=== PATIENT | male | born 1955 | race Caucasian/White ===

== ENCOUNTER 2021-01-27 01:19 | Day surgery (SDC) | payer MEDICARE, SELFPAY ==
[2021-01-22 13:27] VITALS: BMI 42.6
[2021-01-27] VITALS (10 sets, daily range): BP systolic 119–156; BP diastolic 75–94; PULSE 64–75; RESP 12–20; TEMP 36.1–36.4; O2SAT 95–99; BMI 42.1
[2021-01-27] MEDS: LACTATED RINGERS 1,000 ML 30 ML IV CONT (10:24)
[2021-01-27] MEDS: ACETAMINOPHEN 500 MG TABLET 1000 MG PO (10:24)
[2021-01-27] MEDS: KETOROLAC 15 MG/ML VIAL (*BKC) IV PUSH (10:25)
[2021-01-27 10:37] LABS: Glucose Point of Care 178 mg/dl (65-105)
--- NOTE | 2021-01-27 10:51 | WPDANESEPPF ---
Anes - Initial Pre Proc Eval Procedure: Operation Date: 01/27/21 12:00 Proposed Procedures p Open Epigastric Hernia Repair, Possible Mesh - Milo Hodgson DO Date/Time: 01/27/21 10:51 Surgeon: Milo Hodgson DO Pre Op Diagnosis: epigastric hernia Patient Data Age: 65 Gender: M Height: 1.68 m Weight: 118.5 kg Last Vital Signs Temp 36.4 C 01/27/21 09:54 Pulse 70 01/27/21 09:54 Resp 20 01/27/21 09:54 BP 140/75 01/27/21 09:54 Pulse Ox 96 01/27/21 09:54 Allergies Allergy/AdvReac Type Severity Reaction Status Date / Time No Known Allergies Allergy Verified 01/22/21 13:12 Home Medications Medication Instructions Recorded Confirmed Type tramadol 50 mg tablet 50 mg PO Q6H PRN #50 tablet 12/02/20 01/27/21 Rx multivitamin 1 tablet PO DAILY 12/22/20 01/27/21 History omega 9-sxo-adh-fish oil 1,000 mg 2 cap PO BID 12/22/20 01/27/21 History (120 mg-180 mg) capsule Trijardy XR 1 tablet PO QAM 01/22/21 01/27/21 History amlodipine 10 mg PO HS 01/22/21 01/27/21 History atorvastatin 40 mg PO HS 01/22/21 01/27/21 History carvedilol 25 mg PO BID 01/22/21 01/27/21 History cholecalciferol (vitamin D3) 25 mcg PO DAILY 01/22/21 01/27/21 History clindamycin HCl 150 mg PO QAM 01/22/21 01/27/21 History fluticasone propionate [Flonase] 2 spray INTRANASAL DAILY PRN 01/22/21 01/27/21 History glimepiride 1 mg PO QAM 01/22/21 01/27/21 History ibuprofen 600 mg PO QAM 01/22/21 01/27/21 History ibuprofen 800 mg PO BID PRN 01/22/21 01/27/21 History lactobacillus combination no.8 1 cell PO DAILY 01/22/21 01/27/21 History [Adult Probiotic] valsartan-hydrochlorothiazide 1 tablet PO QAM 01/22/21 01/22/21 History Laboratory Tests 01/27/21 10:34 POC Capillary Glucose 178 mg/dl H mg/dl (65-105) Patient hx anesthesia problems: post op nausea/vomiting Family hx anesthesia problems: none PMFSH Past Medical History Medical History Benign essential hypertension BMI 38.0-38.9,adult Cellulitis Chronic cellulitis Chronic pain DM type 2 (diabetes mellitus, type 2) Encounter for routine adult health examination without abnormal findings Encounter for special screening examination for neoplasm of prostate Hospital discharge follow-up Hx of colonic polyps Hyperlipidemia On penitentiary drug therapy NABIL on CPAP Pedal edema Ventral hernia Vitamin D deficiency Surgical History Surgical History Hx of hernia repair bilateral inguinal hernia repair 2009 Dr. Schaffer. Family History Family History Grandparent Family history of coronary artery disease Mother Family history of malignant neoplasm of ovary Heart disease Father Heart disease Social History Social History Smoking status: Never smoker Second hand tobacco smoke exposure: No Alcohol intake: current Drinks per week: 4 Alcohol use details: social Substance use: never Living arrangements: with family Additional living arrangements comments: Spiritual care concerns: No Anes - Eval Final PreProcedure Day of Procedure 01/27/21 10:51 Patient weight: morbidly obese Heart: regular rate and rhythm Lungs: clear to auscultation Airway: Mallampati scale class II Neurological: alert and oriented Last oral intake: >/= 8 hours ASA classification: III Emergent: no Anesthetic plan: proceed Anesthesia type and monitoring: general ETT and standard monitoring Informed Consent: The patient's anesthetic plan and its attendant risks and benefits were discussed with the patient/family/POA. Questions were solicited and answers provided to the satisfaction of the patient/family/POA.
--- NOTE | 2021-01-27 11:49 | WPDHPUPDATE1 ---
History and Physical Update Update Date/Time: 01/27/21 11:49 History and Physical has been reviewed, including an updated exam of the patient. There are NO changes in the patient's condition. Risks, benefits, and alternatives have been discussed and questions answered. Patient agrees to proceed with procedure.
--- NOTE | 2021-01-27 11:49 | PM.IMHP ---
H&P: HPI History of Present Illness Date/Time: 01/27/21 11:49 Chief Complaint: epigastric hernia Narrative: This is a 65 yo man who presents for epigastric hernia repair. He denies any changes since last seen in office. Review of Systems Review of Systems: All systems reviewed & are unremarkable except as noted in HPI and below Constitutional: Constitutional: Denies chills, Denies fever(s), Denies headache(s) and Denies weight loss Eyes: Eyes: Denies change in vision ENT: Denies dizziness, Denies headache(s), Denies neck mass and Denies throat swelling Cardiovascular: Cardiovascular: Denies chest pain, Denies lightheadedness and Denies dyspnea Respiratory: Respiratory: Denies cough, Denies dyspnea and Denies wheezing Gastrointestinal: Gastrointestinal: Denies abdominal pain, Denies change in bowel habits, Denies nausea and Denies vomiting Genitourinary: Genitourinary: Denies hematuria and Denies dysuria Musculoskeletal: Musculoskeletal: Reports as per HPI Integumentary/Breasts: Skin/Breast: Reports as per HPI Neurologic: Denies dizziness and Denies headache(s) Allergic/Immunologic: Allergic/Immunologic: Denies throat swelling and Denies wheezing PMFSH Past Medical History Medical History Benign essential hypertension BMI 38.0-38.9,adult Cellulitis Chronic cellulitis Chronic pain DM type 2 (diabetes mellitus, type 2) Encounter for routine adult health examination without abnormal findings Encounter for special screening examination for neoplasm of prostate Hospital discharge follow-up Hx of colonic polyps Hyperlipidemia On detention drug therapy NABIL on CPAP Pedal edema Ventral hernia Vitamin D deficiency Surgical History Surgical History Hx of hernia repair bilateral inguinal hernia repair 2009 Dr. Schaffer. Family History Family History Grandparent Family history of coronary artery disease Mother Family history of malignant neoplasm of ovary Heart disease Father Heart disease Social History Social History Smoking status: Never smoker Second hand tobacco smoke exposure: No Alcohol intake: current Drinks per week: 4 Alcohol use details: social Substance use: never Living arrangements: with family Additional living arrangements comments: Spiritual care concerns: No Meds Home Medications and Allergies Home Medications Medication Instructions Recorded Confirmed Type tramadol 50 mg tablet 50 mg PO Q6H PRN #50 tablet 12/02/20 01/27/21 Rx multivitamin 1 tablet PO DAILY 12/22/20 01/27/21 History omega 6-tfd-ugj-fish oil 1,000 mg 2 cap PO BID 12/22/20 01/27/21 History (120 mg-180 mg) capsule Trijardy XR 1 tablet PO QAM 01/22/21 01/27/21 History amlodipine 10 mg PO HS 01/22/21 01/27/21 History atorvastatin 40 mg PO HS 01/22/21 01/27/21 History carvedilol 25 mg PO BID 01/22/21 01/27/21 History cholecalciferol (vitamin D3) 25 mcg PO DAILY 01/22/21 01/27/21 History clindamycin HCl 150 mg PO QAM 01/22/21 01/27/21 History fluticasone propionate [Flonase] 2 spray INTRANASAL DAILY PRN 01/22/21 01/27/21 History glimepiride 1 mg PO QAM 01/22/21 01/27/21 History ibuprofen 600 mg PO QAM 01/22/21 01/27/21 History ibuprofen 800 mg PO BID PRN 01/22/21 01/27/21 History lactobacillus combination no.8 1 cell PO DAILY 01/22/21 01/27/21 History [Adult Probiotic] valsartan-hydrochlorothiazide 1 tablet PO QAM 01/22/21 01/22/21 History Allergies Allergy/AdvReac Type Severity Reaction Status Date / Time No Known Allergies Allergy Verified 01/22/21 13:12 Vital Signs Vital Signs - 24 hr 01/27/21 09:54 Temperature 36.4 C Pulse Rate 70 Respiratory Rate 20 Blood Pressure 140/75 Pulse Oximetry 96 Exam Const: General: no acute distress a
[2021-01-27] MEDS: SCOPOLAMINE 1.5 MG PATCH TRANSDERM (12:21)
[2021-01-27] MEDS: ceFAZolin 2 GM/D5W 50 ML 2 GM/50 ML BAG IVPB (12:24)
[2021-01-27] MEDS: BUPIVACAINE/EPINEPHRINE 0.5% 30 ML VIAL INFILTRATE (12:56)
--- NOTE | 2021-01-27 13:20 | W.PM.PROC2 ---
Procedure Note - Detailed Date of Procedure 01/27/21 Pre-op Diagnosis epigastric hernia Post-op Diagnosis same Procedure Performed Open epigastric hernia repair with 4.6 cm Parietex ventral patch Surgeon Milo Hodgson, DO Anesthesia general and local (0.5% bupivacaine with epinephrine) Indications This is a 65-year-old man who presented with an upper abdominal bulge that has been present for several months. He feels that this has gradually enlarged and does cause some discomfort with activity. He was found to have a wide rectus diastasis in his upper abdomen from his xiphoid to umbilicus, but within the diastasis there did appear to be an isolated bulge that appeared to be an epigastric hernia containing preperitoneal fat. Discussions were made with the patient about treatment options and decision was made to proceed with epigastric hernia repair with possible mesh. Findings Epigastric hernia repair was performed. The epigastric hernia measured approximately 1 cm was located about 5 cm inferior to the xiphoid process. The hernia defect appeared just wide enough to require mesh for repair, and this was partially due to the fact that the fascia appeared very thin and weak in this location. A 4.6 cm prior to expansion opacity was placed within the preperitoneal pocket and this was secured to the fascia using 0 Ethibond U-stitch trans fascial sutures. The hernia sac that was excised was sent pathology. Description of Procedure Procedure as well as risks, benefits, and alternatives were discussed with the patient. Written consent was obtained and placed in chart prior to procedure. Patient was brought back to surgical suite. He was placed supine on operating table. He was then intubated by Anesthesia Department. His abdomen was prepped and draped in sterile fashion using chlorhexidine prep. 0.5% bupivacaine with epinephrine was infiltrated locally around the operative area. A 3 cm transverse incision was made in the epigastric region using a 15 blade scalpel. Electrocautery was used for hemostasis and for dissection down through the subcutaneous fat. Hernia sac was encountered and this was carefully freed up from surrounding subcutaneous fat using electrocautery. The hernia sac was freed up all the way down to the level of the fascia, and then it was transected using electrocautery. The hernia sac was sent to the lab for pathology. The hernia defect was then measured. This was measuring approximately 10 mm. The decision was made to use a 4.6 cm Parietex ventral patch. The peritoneum was cleared under the fascia circumferentially around the hernia using blunt dissection and electrocautery. Once a wide enough pocket was created for the mesh, the mesh was then placed within this preperitoneal pocket and laid out flat centered on the hernia defect. The mesh appeared to be sitting in proper position. The mesh was then secured at the 4 corners using 0 Ethibond U-stitch trans fascial sutures. Once all 4 sutures were placed, the mesh was lifted up against the abdominal wall and appeared to be properly centered on the hernia defect. The fascia of the hernia defect was then reapproximated over the mesh using 0 Ethibond [id number] sutures. The 4 transfascial sutures were then tied down in place. The repair was inspected and appeared secure. 0.5% bupivacaine with epinephrine was infiltrated around the fascia and subcutaneous space. Sulaiman's fascia was reapproximated using 3-0 Vicryl simple interrupted sutures and then the skin was approximated using 4-0 Monocryl running subcuticular suture. Exofin glue was then applied on top. The patient was then awakened from anesthesia, extubated, and transferred to recovery. Implants 4.6 cm Parietex ventral patch Estimated Blood Loss 5 Pathology yes (Hernia sac) Complications No immediate complications Condition stable Disposition same day
[2021-01-27 13:33] LABS: Glucose Point of Care 157 mg/dl (65-105)
== END 2021-01-27 15:21 | disposition home or self-care (01) ==
PROVIDERS: PCP Internal Medicine; Visit Provider Surgery
PROC: 0WQF0ZZ Repair Abdominal Wall, Open Approach (ICD-10-PCS; CPT 49560; principal; 2021-01-27 12:00)
DX: K43.9 Ventral hernia without obstruction or gangrene (principal); M62.08 Separation of muscle (nontraumatic), other site; I10 Essential (primary) hypertension; E11.9 Type 2 diabetes mellitus without complications; E78.5 Hyperlipidemia, unspecified; G47.33 Obstructive sleep apnea (adult) (pediatric); E55.9 Vitamin D deficiency, unspecified; G89.29 Other chronic pain; Z79.84 Long term (current) use of oral hypoglycemic drugs; Z79.891 Long term (current) use of opiate analgesic; E66.01 Morbid (severe) obesity due to excess calories; Z68.41 Body mass index [BMI] 40.0-44.9, adult
CPT/HCPCS: 49560; 49568; 82948; 88302; A9270; C1781; J0690; J1885; J2250; J3010; J7120

== ENCOUNTER → 2021-04-02 06:29 | Outpatient (CLI) | payer MEDICARE, SELFPAY ==
[2021-04-02 17:47] LABS: SARS-CoV-2 RNA PCR Negative
== END ==
PROVIDERS: PCP Internal Medicine; Visit Provider Internal Medicine
DX: R68.89 Other general symptoms and signs (principal); Z20.822 Contact with and (suspected) exposure to COVID-19
CPT/HCPCS: C9803; U0003; U0005

== ENCOUNTER 2021-06-10 00:39 | Day surgery (SDC) | payer MEDICARE, SELFPAY ==
[2021-05-31 12:13] VITALS: BMI 40.4
--- NOTE | 2021-06-09 17:13 | PM.HPGS ---
History of Present Illness History of Present Illness Consent: Risks, benefits, and alternatives have been discussed and questions answered. Patient agrees to proceed with procedure. Chief complaint: hx of colon polyps Narrative: Jim Huffman is a 65 year old male With history of colon polyps. He is due for colon cancer screening. Review of Systems Review of Systems: All systems reviewed & are unremarkable except as noted in HPI and below PMFSH Past Medical History Medical History Benign essential hypertension BMI 38.0-38.9,adult Cellulitis Chronic cellulitis Chronic pain DM type 2 (diabetes mellitus, type 2) Encounter for routine adult health examination without abnormal findings Encounter for special screening examination for neoplasm of prostate Hospital discharge follow-up Hx of colonic polyps Hyperlipidemia On penitentiary drug therapy NABIL on CPAP Pedal edema Ventral hernia Vitamin D deficiency Surgical History Surgical History H/O ventral hernia repair Open epigastric hernia repair with 4.6 cm Parietex ventral patch Hx of hernia repair bilateral inguinal hernia repair 2009 Dr. Schaffer. Family History Family History Grandparent Family history of coronary artery disease Mother Family history of malignant neoplasm of ovary Heart disease Father Heart disease Social History Social History Smoking status: Never smoker Second hand tobacco smoke exposure: No Alcohol intake: current Drinks per week: 4 Alcohol use details: social drinker Substance use: never Substance use type: does not use Living arrangements: with family Additional living arrangements comments: Spiritual care concerns: No Meds Home Medications and Allergies Home Medications Medication Instructions Recorded Confirmed Type multivitamin 1 tablet PO DAILY 12/22/20 06/10/21 History omega 3-gqt-lsh-fish oil 1,000 mg 2 cap PO BID 12/22/20 06/10/21 History (120 mg-180 mg) capsule Trijardy XR 1 tablet PO QAM 01/22/21 06/10/21 History carvedilol 25 mg PO BID 01/22/21 06/10/21 History cholecalciferol (vitamin D3) 25 mcg PO DAILY 01/22/21 06/10/21 History clindamycin HCl 150 mg PO QAM 01/22/21 06/10/21 History fluticasone propionate 2 spray INTRANASAL DAILY PRN 01/22/21 06/10/21 History glimepiride 1 mg PO QAM 01/22/21 06/10/21 History lactobacillus combination no.8 1 cell PO DAILY 01/22/21 06/10/21 History valsartan-hydrochlorothiazide 1 tablet PO QAM 01/22/21 06/10/21 History amlodipine 10 mg tablet See Rx Instructions .ROUTE 04/01/21 06/10/21 Rx .COMPLEX #90 tablet tramadol 50 mg tablet 50 mg PO Q6H PRN #50 tablet 04/13/21 06/10/21 Rx atorvastatin 40 mg tablet See Rx Instructions .ROUTE 05/24/21 06/10/21 Rx .COMPLEX #90 tablet ibuprofen 800 mg tablet See Rx Instructions .ROUTE 05/28/21 06/10/21 Rx .COMPLEX #90 tablet Allergies Allergy/AdvReac Type Severity Reaction Status Date / Time No Known Allergies Allergy Verified 06/10/21 07:44 Exam Resp: Auscultation: clear to auscultation bilaterally Cardio: Rate: regular rate Rhythm: regular rhythm GI: GI Palp: Yes Soft to palpation and No Tenderness to palpation present (GI) Assessment and Plan Assessment and plan (1) Colon cancer screening: Code(s): Z12.11 - Encounter for screening for malignant neoplasm of colon Status: Acute Assessment and Plan: Colonoscopy with possible biopsy or polypectomy or cautery or injection of substances.
[2021-06-10 07:46] VITALS: BP 155/90; PULSE 78; RESP 19; TEMP 36.7; O2SAT 97; BMI 41.1
--- NOTE | 2021-06-10 07:46 | WPDANESEPPF ---
Anes - Initial Pre Proc Eval Procedure: Operation Date: 06/10/21 09:00 Proposed Procedures p Screening Colonoscopy - Rogers Almaraz MD Date/Time: 06/10/21 07:46 Surgeon: Rogers Almaraz MD Pre Op Diagnosis: hx of colon polyps Patient Data Age: 65 Gender: M Height: 1.68 m Weight: 113.5 kg Allergies Allergy/AdvReac Type Severity Reaction Status Date / Time No Known Allergies Allergy Verified 06/10/21 07:44 Home Medications Medication Instructions Recorded Confirmed Type multivitamin 1 tablet PO DAILY 12/22/20 06/10/21 History omega 2-xxb-uhu-fish oil 1,000 mg 2 cap PO BID 12/22/20 06/10/21 History (120 mg-180 mg) capsule Trijardy XR 1 tablet PO QAM 01/22/21 06/10/21 History carvedilol 25 mg PO BID 01/22/21 06/10/21 History cholecalciferol (vitamin D3) 25 mcg PO DAILY 01/22/21 06/10/21 History clindamycin HCl 150 mg PO QAM 01/22/21 06/10/21 History fluticasone propionate 2 spray INTRANASAL DAILY PRN 01/22/21 06/10/21 History glimepiride 1 mg PO QAM 01/22/21 06/10/21 History lactobacillus combination no.8 1 cell PO DAILY 01/22/21 06/10/21 History valsartan-hydrochlorothiazide 1 tablet PO QAM 01/22/21 06/10/21 History amlodipine 10 mg tablet See Rx Instructions .ROUTE 04/01/21 06/10/21 Rx .COMPLEX #90 tablet tramadol 50 mg tablet 50 mg PO Q6H PRN #50 tablet 04/13/21 06/10/21 Rx atorvastatin 40 mg tablet See Rx Instructions .ROUTE 05/24/21 06/10/21 Rx .COMPLEX #90 tablet ibuprofen 800 mg tablet See Rx Instructions .ROUTE 05/28/21 06/10/21 Rx .COMPLEX #90 tablet Patient hx anesthesia problems: none Family hx anesthesia problems: none Results Review: All pre-operative results and documents have been reviewed as part of the pre-operative evaluation. [facility] Past Medical History Medical History Benign essential hypertension BMI 38.0-38.9,adult Cellulitis Chronic cellulitis Chronic pain DM type 2 (diabetes mellitus, type 2) Encounter for routine adult health examination without abnormal findings Encounter for special screening examination for neoplasm of prostate Hospital discharge follow-up Hx of colonic polyps Hyperlipidemia On jail drug therapy NABIL on CPAP Pedal edema Ventral hernia Vitamin D deficiency Surgical History Surgical History H/O ventral hernia repair Open epigastric hernia repair with 4.6 cm Parietex ventral patch Hx of hernia repair bilateral inguinal hernia repair 2009 Dr. Schaffer. Family History Family History Grandparent Family history of coronary artery disease Mother Family history of malignant neoplasm of ovary Heart disease Father Heart disease Social History Social History Smoking status: Never smoker Second hand tobacco smoke exposure: No Alcohol intake: current Drinks per week: 4 Alcohol use details: social drinker Substance use: never Substance use type: does not use Living arrangements: with family Additional living arrangements comments: Spiritual care concerns: No Anes - Eval Final PreProcedure Day of Procedure 06/10/21 07:46 Patient weight: morbidly obese Heart: regular rate and rhythm Lungs: clear to auscultation Airway: Mallampati scale class II Neurological: alert and oriented Last oral intake: >/= 8 hours ASA classification: III Emergent: no Anesthetic plan: proceed Anesthesia type and monitoring: general GIVS and standard monitoring Results Review: All pre-operative results and documents have been reviewed as part of the pre-operative evaluation. Informed Consent: The patient's anesthetic plan and its attendant risks and benefits were discussed with the patient/family/POA. Questions were solicited and answers provided to the satisfaction of the patient/family/POA.
[2021-06-10] MEDS: LACTATED RINGERS 1,000 ML 150 ML IV CONT (07:50)
[2021-06-10 08:02] LABS: Glucose Point of Care 167 mg/dl (65-105)
[2021-06-10 08:50] VITALS: BP 107/55; PULSE 75; RESP 16; O2SAT 96
[2021-06-10 09:00] VITALS: BP 105/53; PULSE 72; RESP 18; O2SAT 96
[2021-06-10 09:10] VITALS: BP 121/68; PULSE 71; RESP 20; O2SAT 98
== END 2021-06-10 09:27 | disposition home or self-care (01) ==
PROVIDERS: PCP Internal Medicine; Visit Provider Internal Medicine Gastroenterology
PROC: 0DJD8ZZ Inspection of Lower Intestinal Tract, Via Natural or Artificial Opening Endoscopic (ICD-10-PCS; CPT 45378; principal; 2021-06-10 09:00)
DX: Z12.11 Encounter for screening for malignant neoplasm of colon (principal); K57.30 Diverticulosis of large intestine without perforation or abscess without bleeding; Z86.010 Personal history of colon polyps; I10 Essential (primary) hypertension; E11.9 Type 2 diabetes mellitus without complications; E78.5 Hyperlipidemia, unspecified; E55.9 Vitamin D deficiency, unspecified; G47.33 Obstructive sleep apnea (adult) (pediatric); Z79.899 Other long term (current) drug therapy
CPT/HCPCS: G0105; 82948; J2001; J2704; J7120

== ENCOUNTER 2021-07-09 07:37 | Outpatient (CLI) | payer MEDICARE, SELFPAY ==
--- NOTE | 2021-07-09 07:56 | ECHO_ITS ---
Patient Info Name: Jim Huffman Age: 65 years : 1955 Gender: Male Ht: 66 in Wt: 260 lbs BSA: 2.40 m2 HR: 73 bpm BP: 162 / 96 mmHg Technical Quality: Fair Exam Date: 07/09/2021 8:10 AM Exam Location: [facility] Patient Status: Preadmit Admit Date: 07/09/2021 Staff Ordering Physician: Donnell Curry MD [employer] Operator: Allyson Leavitt RDCS Attending Provider: Donnell Curry MD Referring Physician: Patricio TREJO; Exam Type: CA echo doppler color flow Study Info Indications I10 - Essential (primary) hypertension Complete two-dimensional, color flow and Doppler transthoracic echocardiogram is performed. Summary 1. Complete two-dimensional, color flow and Doppler transthoracic echocardiogram is performed. 2. Left ventricular chamber dimension is normal. 3. Left ventricular systolic function is normal, estimated at 60-65%. 4. There is mildly increased left ventricular wall thickness. 5. The left ventricular diastolic function is grade I diastolic dysfunction. 6. E/e' 14 is mildly elevated. 7. Global longitudinal strain is abnormal at -15.0%. 8. There is mild aortic valve regurgitation. 9. The mitral valve has moderately calcified annulus. 10. There is trace mitral valve regurgitation. 11. No pulmonary hypertension, estimated pulmonary arterial systolic pressure is 17 mmHg. Left Ventricle E/e' 14 is mildly elevated. Global longitudinal strain is abnormal at -15.0%. Left ventricular chamber dimension is normal. Left ventricular systolic function is normal, estimated at 60-65%. There is mildly increased left ventricular wall thickness. The left ventricular diastolic function is grade I diastolic dysfunction. Right Ventricle Right ventricular chamber dimension is normal. Right ventricular systolic function is normal. Left Atria Left atrial chamber dimension is normal. Right Atria Right atrial chamber dimension is normal. Aortic Valve The aortic valve is not well visualized. Cannot determine number of aortic valve leaflets. There is no aortic valve stenosis. There is mild aortic valve regurgitation. Pulmonic Valve There is no pulmonic regurgitation. Mitral Valve The mitral valve has moderately calcified annulus. There is no mitral valve stenosis. There is trace mitral valve regurgitation. Tricuspid Valve There is no tricuspid valve regurgitation. No pulmonary hypertension, estimated pulmonary arterial systolic pressure is 17 mmHg. Pericardium/Pleural There is no pericardial effusion. Inferior Vena Cava Normal inferior vena cava with >50% collapse upon inspiration consistent with normal right atrial pressure, 5 mmHg. Aorta The aortic root size at the sinus of Valsalva is normal. Left Ventricular Outflow Tract Name Value Normal LVOT 2D LVOT Diameter 2.0 cm LVOT Doppler LVOT Peak Gradient 4 mmHg LVOT Mean Gradient 2 mmHg LVOT VTI 23 cm LVOT VTI/AV VTI Ratio 0.8 LVOT Stroke Volume 74 ml LVOT CO
== END 2021-07-09 07:38 | disposition home or self-care (01) ==
LOC: ANHCARD 11:24
PROVIDERS: PCP Internal Medicine; Visit Provider Internal Medicine
DX: I10 Essential (primary) hypertension (principal); R94.31 Abnormal electrocardiogram [ECG] [EKG]; I34.0 Nonrheumatic mitral (valve) insufficiency; I35.1 Nonrheumatic aortic (valve) insufficiency
CPT/HCPCS: 93306

== ENCOUNTER 2023-05-22 10:19 | Outpatient (CLI) | payer MEDICARE, SELFPAY ==
--- NOTE | ~2023-05-22 | XR_ITS ---
Clinical Indication: Upper respiratory infection PA and lateral views of the chest: Comparison: 03/03/2016 Findings: The lungs are clear, without evidence of focal consolidation or pleural effusion. Cardiome diastinal silhouette is within normal limits. Bones and soft tissues are unremarkable. Impression: Normal chest. Reviewed, dictated and finalized at [facility]. [employer] Impression: Normal chest.
== END 2023-05-22 10:20 | disposition home or self-care (01) ==
PROVIDERS: PCP Internal Medicine; Visit Provider Internal Medicine
DX: J06.9 Acute upper respiratory infection, unspecified (principal); R05.9 Cough, unspecified; R06.2 Wheezing
CPT/HCPCS: 71046

== ENCOUNTER 2024-03-18 12:20 | Outpatient (CLI) | payer OTHER, SELFPAY ==
--- NOTE | ~2024-03-18 | CT_ITS ---
EXAMINATION: CT pelvis wo con DATE: 03/18/2024 12:50 INDICATION: Left lower quadrant abdominal pain. TECHNIQUE: Computed tomography (CT) of the pelvis was performed without intravenous contrast. Automat ed exposure control and iterative reconstruction technique were employed. The dose-length product was 934.53 mGy-cm. COMPARISON: CT abdomen and pelvis 01/20/2010 FINDINGS: The bladder is markedly distended. The prostate is moderately enlarged. There are no dilate d loops of bowel. The appendix is normal. There are no pathologically enlarged lymph nodes. There is no free intraperitoneal fluid. There are changes of bilateral inguinal hernia repairs. There is mild osteoarthritis of the hips. There is severe lower lumbar spondylosis. IMPRESSION: 1. No specific etiology for the patient's symptoms. Reviewed, dictated and finalized at location A.
== END 2024-03-18 12:21 | disposition home or self-care (01) ==
LOC: ANHIMG 12:25
PROVIDERS: PCP Internal Medicine; Visit Provider Internal Medicine
DX: R10.32 Left lower quadrant pain (principal); Z98.890 Other specified postprocedural states; Z87.19 Personal history of other diseases of the digestive system
CPT/HCPCS: 72192